=== PATIENT | female | born 1995 | race Caucasian/White ===

== ENCOUNTER 2022-08-08 03:35 | Emergency (ER) | payer OTHER ==
[~2022-08-08] VITALS: Ht 162.6 cm; Wt 56.7 kg
[2022-08-08 03:42] VITALS: BP_SYST 128
[2022-08-08 04:37] LABS: BILIRUBIN,URINE NEGATIVE (NEGATIVE); BLOOD, URINE 2+ (NEGATIVE); CLARITY/URINE CLOUDY (CLEAR); COLOR,URINE YELLOW (YELLOW); GLUCOSE,URINE NEGATIVE (NEGATIVE); KETONES,URINE TRACE (NEGATIVE); LEUKOCYTE ESTERASE ,URINE 2+ (NEGATIVE); NITRITE, URINE NEGATIVE (NEGATIVE); PROTEIN URINE 2+ (NEGATIVE); UROBILINOGEN,URINE 0.2 (0.2-1.0)
[2022-08-08 04:47] LABS: BACTERIA,URINE MANY /HPF (None Seen); WBC,URINE >100 /HPF (0-3)
[2022-08-08] MEDS ORDERED: CEPH-548 PO ×2 (04:59→05:27)
[2022-08-08] MEDS ORDERED: KETOROLAC TROMETHAMINE 15 MG VIAL IM ONE (05:00)
[2022-08-08] MEDS ORDERED: PHEN-726 PO ×2 (05:00→05:27)
[2022-08-08] MEDS ORDERED: cephALEXin 500 MG CAPSULE PO ONE (05:00)
[2022-08-08 05:32] VITALS: BP_SYST 118
== END 2022-08-08 05:32 | disposition home or self-care (01) ==
LOC: SED 03:35
DX: N12 Tubulo-interstitial nephritis, not specified as acute or chronic (principal); R10.30 Lower abdominal pain, unspecified; R30.0 Dysuria; R35.0 Frequency of micturition; Z88.8 Allergy status to other drugs, medicaments and biological substances; Z79.899 Other long term (current) drug therapy
CPT/HCPCS: 99283; 81000; 87086; 81025; 96372; J1885